=== PATIENT | male | born 1975 | race Caucasian/White ===

== ENCOUNTER 2020-02-25 16:51 | Emergency (ER) | payer OTHER ==
[2020-02-25] MEDS ORDERED: PREDNISONE50 MG PO (17:51)
[2020-02-25] MEDS ORDERED: EPIPEN 2-P0.3 MG/0.3 IM (17:51)
[2020-02-25 19:05] VITALS: BP 120/70
== END 2020-02-25 19:07 | disposition home or self-care (01) | DRG 918 ==
LOC: ED 16:51
DX: T63.441A Toxic effect of venom of bees, accidental (unintentional), initial encounter (principal)